=== PATIENT | male | born 1975 | race Caucasian/White ===

== ENCOUNTER 2019-09-05 06:17 | Emergency (ER) | payer BC, OTHER ==
[~2019-09-05] VITALS: Ht 182.9 cm; Wt 97.1 kg
[2019-09-05 06:22] VITALS: BP 143/85
--- NOTE | 2019-09-05 06:22 | NUR ---
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 HR 106. PATIENT STATES, " I WAS WORKING OUT AND FELT STRONG PALPATIONS AND STARTED FEELING SOB, FELT NAUSEATED AND A LITTLE DIZZY. I NOTICED UPPER/LOWER EXTREMITY TINGLINESS; PRESSURE ON MY SOLAR PLEXUS, AND THIS WAS JUST WITH MILD EXERCISE." NO PAIN NOTED. PATIENT A/O X 4 AND FOLLOWS COMMANDS. BREATHING IS UNLABORED AND SYMMETRICAL. RR IS 16; 98% ON RA. PULSE IS 99BPM AT THIS TIME. ERMD MADE AWARE OF STATUS. SIDE RAILSX1. PLACED ON MONITOR. WILL CONTINUE TO MONITOR. HX- HTN, ANXIETY NKDA RX: LOSARTAN; AMLODIPINE
--- NOTE | 2019-09-05 06:28 | NUR ---
PT. APPEARED ANXIOUS WITH RAPID BREATHING. PERFORMED BREATHING EXERCISES WITH PATIENT. PATIENT STATED, "I FEEL BETTER NOW". HR IS 90; RR:17; SPO2 98%. WILL CONTINUE TO MONITOR.
--- NOTE | 2019-09-05 06:43 | NUR ---
DR. MORLEY EVALUATING PATIENT AT BEDSIDE.
[2019-09-05] MEDS ORDERED: IBUPROFEN 600 MG TAB PO ONE (06:45)
--- NOTE | 2019-09-05 07:00 | NUR ---
Pt report given to MAULIK MCCONNELL. Transfer of care at this time.
--- NOTE | 2019-09-05 07:20 | NUR ---
LAB AT BEDSIDE.
[2019-09-05 07:31] LABS: BASOPHILS % (AUTO) 0.6 % (0.0-2.0); EOSINOPHILS # (AUTO) 0.1 K/uL (0-0.4); HEMATOCRIT 42.6 % (36-52); HEMOGLOBIN 14.2 g/dL (12.0-18.0); LYMPHOCYTES # (AUTO) 1.1 K/uL (2.0-11.5); LYMPHOCYTES % (AUTO) 17.8 % (20.5-51.1); MEAN CORPUSCULAR HEMOGLOBIN 27 pg (27-31); MEAN CORPUSCULAR HGB CONC 33 g/dL (33-37); MEAN CORPUSCULAR VOLUME 79.7 fL (80-94); MONOCYTES # (AUTO) 0.3 K/uL (0.8-1.0); MONOCYTES % (AUTO) 5.3 % (1.7-9.3); NEUTROPHILS # (AUTO) 4.7 K/uL (1.8-7.7); NEUTROPHILS % (AUTO) 74.3 % (42.2-75.2); PLATELET COUNT (AUTO) 238 K/uL (140-450); RED BLOOD CELL COUNT(AUTO) 5.35 MIL/uL (4.20-6.10); RED CELL DISTRIBUTION WIDTH 14.2 % (11.6-13.7); WHITE BLOOD COUNT (AUTO) 6.4 K/uL (4.8-10.8)
[2019-09-05 07:38] LABS: ANION GAP 14.7 (8-16); CARBON DIOXIDE 24.1 mmol/L (21-32); CREATININE 0.8 mg/dL (0.7-1.3); POTASSIUM 3.8 mmol/L (3.5-5.1)
[2019-09-05 07:44] LABS: ALBUMIN 3.5 g/dL (3.4-5.0); TOTAL BILIRUBIN 0.5 mg/dL (0.0-1.0)
--- NOTE | 2019-09-05 07:46 | NUR ---
REPOSITIONED PT FOR COMFORT. WILL CONTINUE TO MONITOR.
--- NOTE | 2019-09-05 07:52 | NUR ---
Patient being evaluated by DR. MELVIN at bedside.
[2019-09-05] MEDS ORDERED: AMLO10TA PO (08:05)
[2019-09-05] MEDS ORDERED: LOSA25TA32 PO (08:05)
[2019-09-05] MEDS ORDERED: ASPIRIN 325 MG TAB PO ONE (08:15)
--- NOTE | 2019-09-05 09:22 | NUR ---
[facility] at bedside for transfer.
--- NOTE | 2019-09-05 09:33 | NUR ---
Patient to be transferred to [facility]. Is being transferred due to CHEST PAIN. Receiving facility has accepting physician and available space. ER physician has signed transfer form. Patient or responsible green party has agreed to transfer and signed form. Patient belongings inventoried and will be sent with patient. Copy of nursing notes, lab reports, EKG, Physicians Orders and X-rays to be sent with patient. Report called to DAVE at receiving facility. [facility] ambulance service has been called for transfer.
[2019-09-05 09:34] VITALS: BP 123/80
== END 2019-09-05 09:28 | disposition short-term general hospital (02) ==
LOC: MED 06:17
DX: R00.2 Palpitations (principal); R07.89 Other chest pain; I10 Essential (primary) hypertension; F41.9 Anxiety disorder, unspecified
CPT/HCPCS: 36415; 71045; 80053; 84484; 85025; 93005; 99284; Q0092

== ENCOUNTER 2022-01-05 20:39 | Emergency (ER) | payer SELFPAY ==
[~2022-01-05] VITALS: Ht 182.9 cm; Wt 104.3 kg
[~2022-01-05 20:39] MED LIST: AMLO10TA PO; LOSA25TA32 PO
[2022-01-05 20:40] VITALS: BP 160/90
--- NOTE | 2022-01-05 20:44 | NUR ---
WANDER LEMUS TAKEN TO BED #8
--- NOTE | 2022-01-05 20:45 | NUR ---
46 Y.O M BIB [facility] WITH C/O CHEST PAIN "PRESSURE IN THE SOLAR PLEXUS" THAT IS NOT RADIATING WITH PAIN 06/04 WITH S.O.B. PMH: PANIC DISORDER, HTN, PRE-DIABETIC NKA
--- NOTE | 2022-01-05 20:54 | NUR ---
CXR AT BEDSIDE.
--- NOTE | 2022-01-05 21:00 | NUR ---
EKG DONE AT BEDSIDE
--- NOTE | 2022-01-05 21:05 | NUR ---
PER DR. DESAI, [place].
--- NOTE | 2022-01-05 21:07 | NUR ---
DR DESAI AT BEDSIDE FOR EVALUATION
[2022-01-05] MEDS ORDERED: KETOROLAC 30 MG/ML VIAL IVP ONE (21:15)
--- NOTE | 2022-01-05 21:52 | NUR ---
DR. DESAI AT BEDSIDE FOR EVAL.
--- NOTE | 2022-01-05 22:01 | NUR ---
PT AMBULATED TO RESTROOM.
--- NOTE | 2022-01-05 22:05 | NUR ---
PT RETURNED TO BEDSIDE FROM RESTROOM. REATTACHED TO MONITOR.
[2022-01-05] MEDS ORDERED: IBUP-2213 PO (22:19)
[2022-01-05 22:22] VITALS: BP 151/78
--- NOTE | 2022-01-05 22:22 | NUR ---
Patient discharged with v/s stable. Written and verbal after care instructions given and explained. Patient verbalized understanding. Ambulatory with steady gait. All questions addressed prior to discharge. Advised to follow up with PMD.
== END 2022-01-05 22:22 | disposition home or self-care (01) ==
LOC: MED 20:39
DX: R07.89 Other chest pain (principal); R11.0 Nausea; R06.02 Shortness of breath; I10 Essential (primary) hypertension; Z79.899 Other long term (current) drug therapy
CPT/HCPCS: 71045; 96374; 99283; J1885; Q0092

== ENCOUNTER 2022-08-06 13:38 | Emergency (ER) | payer MEDICAID ==
[~2022-08-06] VITALS: Ht 182.9 cm; Wt 98.9 kg
[~2022-08-06 13:38] MED LIST changes: +IBUP-2213 PO
[2022-08-06 13:42] VITALS: BP 160/111
--- NOTE | 2022-08-06 14:20 | NUR ---
PT AMBULTED TO ER BED 7
[2022-08-06] MEDS ORDERED: KETOROLAC 30 MG/ML VIAL IVP ONE (14:25)
[2022-08-06] MEDS ORDERED: NACL 0.9% 1,000 ML IV ONE (14:25)
[2022-08-06] MEDS ORDERED: ONDANSETRON 4 MG/2 ML VIAL IVP ONE (14:25)
--- NOTE | 2022-08-06 14:41 | NUR ---
IV started, blood work obtained. Handed to CPT at bedside.
[2022-08-06 14:44] LABS: BASOPHILS % (AUTO) 0.2 % (0.0-2.0); EOSINOPHILS % (AUTO) 0.6 % (0.0-4.0); HEMATOCRIT 46.5 % (36-52); HEMOGLOBIN 15.8 g/dL (12.0-18.0); LYMPHOCYTES # (AUTO) 1.2 K/uL (2.0-11.5); LYMPHOCYTES % (AUTO) 15.3 % (20.5-51.1); MEAN CORPUSCULAR HEMOGLOBIN 26 pg (27-31); MEAN CORPUSCULAR HGB CONC 34 g/dL (33-37); MEAN CORPUSCULAR VOLUME 76.9 fL (80-94); MONOCYTES # (AUTO) 0.3 K/uL (0.8-1.0); MONOCYTES % (AUTO) 3.7 % (1.7-9.3); NEUTROPHILS # (AUTO) 6.3 K/uL (1.8-7.7); NEUTROPHILS % (AUTO) 80.2 % (42.2-75.2); PLATELET COUNT (AUTO) 220 K/uL (140-450); RED BLOOD CELL COUNT(AUTO) 6.04 MIL/uL (4.20-6.10); RED CELL DISTRIBUTION WIDTH 14.2 % (11.6-13.7); WHITE BLOOD COUNT (AUTO) 7.8 K/uL (4.8-10.8)
[2022-08-06] MEDS ORDERED: IBUP-2213 PO (14:54)
[2022-08-06] MEDS ORDERED: ONDA8TAB87 PO (14:54)
[2022-08-06 14:58] LABS: ANION GAP 12.5 (8-16); CARBON DIOXIDE 25.5 mmol/L (21-32)
--- NOTE | 2022-08-06 15:03 | NUR ---
46 y/o male bib self with c/o headache x yesterday. Patient states headache is constant and just there. Headache level is 7/10. Patient is not currently taking his BP medication. Patient also has some nausea and weakness upon physical exertion. Medical History: HTN NKDA
--- NOTE | 2022-08-06 15:21 | NUR ---
46/M PRESENTS TO ED WITH C/O 7/10 CONSTANT ACHING HEADACHE SINCE YESTERDAY. PATIENT DENIES N/V/D OR PHOTOPHOBIA, STATES HE HAS NOT BEEN COMPLIANT WITH HIS BP MEDICATION AND BELIEVES IT MAY BE RELATED. PATIENT DENIES CP, SOB, VISION CHANGES OR NUMBNESS.
[2022-08-06 15:51] VITALS: BP 99/60
--- NOTE | 2022-08-06 15:51 | NUR ---
Patient discharged with v/s stable. Written and verbal after care instructions given. Patient alert, oriented and verbalized understanding of instructions. Ambulatory with steady gait. All questions addressed prior to discharge. ID band removed. Patient advised to follow up with PMD. Rx of Zofran and Ibuprofen given. Opportunity to ask questions provided and answered.
--- NOTE | 2022-08-06 15:56 | NUR ---
The patient's care was reviewed and supervised by Trinity Oro RN.
== END 2022-08-06 15:51 | disposition home or self-care (01) ==
LOC: MED 13:38
DX: R51.9 Headache, unspecified (principal); R06.02 Shortness of breath; R11.0 Nausea; I10 Essential (primary) hypertension; Z79.899 Other long term (current) drug therapy
CPT/HCPCS: 36415; 80048; 81002; 85025; 96361; 96374; 96375; 99284; J1885; J2405; J7030